=== PATIENT | male | born 1930 | race Caucasian/White ===

== ENCOUNTER 2017-01-31 13:55 | Emergency (ER) | payer MEDICARE, OTHER ==
[~2017-01-31] VITALS: Ht 167.6 cm; Wt 65.9 kg
[~2017-01-31 13:55] MED LIST: ASPI81TA2 PO; CEPH-512 PO; CHOL200035 PO; COU25 PO; FERROUS SULFATE PO; METOPROLOL SUCCINATE PO; SIMVASTATIN PO; SPIR25TA17 PO; VIAG25T PO
[2017-01-31 14:12] VITALS: BP 128/82; PULSE 70; RESP 16; O2SAT 98
--- NOTE | 2017-01-31 14:31 | ED.REPORT ---
HPI-General Illness Date of Service Jan 31, 2017 ED Provider: Saba Carrillo MD Pt is an 86 y/o male w/ a hx of CAD s/p CABG x3, HTN, CHF, A-fib, presenting to the ED c/o SOB onset 10 days ago. His shortness of breath began 6 months ago along with dyspnea on exertion. He seemed to improve thereafter. 10 days ago, he began to experience similar SOB, dyspnea on exertion, and fatigue. He was placed on 20 mg Lasix 1 month ago by his PCP Dr. Esteves. He took himself off the Lasix while he was in [place] for vacation so that he wouldn't experience increased urinary frequency. He returned from that trip 2 days ago. Pt denies orthopnea, change in pedal edema, fever, chills, cough, CP. Last echocardiogram 01/01/17 demonstrated an EF of 55-60%. Last cardiac cath unknown. Nursing Notes Stated Complaint: BREATHING Chief Complaint: Dysrhythmia/Cardiac Nursing Notes Reviewed: Yes Allergies: Coded Allergies: No Known Allergies (Unverified Allergy, Unknown, 02/25/15) Scheduled ([Simvastatin]) 1 TAB PO PM ([Metoprolol Succinate]) 1 TAB PO DAILY ([Ferrous Sulfate]) 2,000 MG PO DAILY Aspirin-Expunged Drug, Do Not Renew! (Aspirin-Expunged Drug, Do Not Renew!) 81 Mg Tablet 81 MG PO DAILY CHOLECALCIFEROL-Expunged Drug, Do Not Renew! (VITAMIN D3-Expunged Drug, Do Not Renew!) 2,000 Unit Capsule 2,000 UNIT PO DAILY Cephalexin (Keflex) 500 Mg Capsule 500 MG PO BID Sildenafil-Expunged Drug, Do Not Renew! (Viagra-Expunged Drug, Do Not Renew!) 25 Mg Tablet 25 MG PO PRN Spironolactone-Expunged Drug, Do Not Renew! (Spironolactone-Expunged Drug, Do Not Renew!) 25 Mg Tablet 25 MG PO BID Warfarin Inactive Drug Do Not Use (Coumadin Inactive Drug Do Not Use) 2.5 Mg Tablet 2.5 MG PO DAILY General Time Seen by MD: 14:27 Chief Complaint Breathing problem Past Medical History Past Medical History Notes: PCP: Dr. Mcclelland Echo 01/01/17 EF 55-60% Past Medical History CAD s/p CABG x3 CHF A-fib Hx melanoma Hypertension Past Surgical History CABG x3 Cardiac cath Melanoma removal Appendectomy Smoking History Unknown if Ever Smoker Social History Other Social History: Good social support Ambulatory Status Independent Review of Systems Full Review of Systems Constitutional: Reports: Fatigue, Denies: Chills, Fever Respiratory: Reports: Dyspnea on exertion, Shortness of breath, Denies: Non-productive cough Cardiovascular: Reports: Dyspnea on exertion, Denies: Chest pain, Edema, Orthopnea GI: Denies: Abdominal pain, Diarrhea, Nausea, Vomiting Complete sys rev & neg: except as marked. Physical Exam Vital Signs Vital Signs Date Time Temp Pulse Resp B/P Pulse Ox O2 Delivery O2 Flow Rate FiO2 01/31/17 14:12 36.6 70 16 128/82 98 Room Air Initial VS: Reviewed, Vital signs normal ENT: Mucous membranes moist, Conjunctiva normal, No scleral icterus Neck: Supple, Full range of motion Abdomen / GI: Soft, Non-tender Extremities: Vascular intact, Neuro intact, No tenderness Skin: Warm, Dry, No cyanosis Neurologic: Alert, Oriented, Nonfocal Psychiatric: Mood/affect normal, Behavior normal, Normal thought content General/Constitutional: Awake, Alert, No acute distress, Cooperative, Not toxic appearing Head / Eyes: Atraumatic, Normocephalic, PERRL Periorbital edema present Respiratory / Chest: Atraumatic, No respiratory distress, No retractions, No stridor, No chest tenderness, No chest wall deformity, No crepitus Crackles at bases Cardiovascular: Heart rate NL, Regular rhythm, Heart sounds NL, No gallop, No murmurs, No rubs, Cap refill not delayed, Peripheral circulation NL Lower Ext Edema: Positive: Bilateral 1+ Interpretation & Diagnostics Lab Results Interpretation Result Diagram: 01/31/17 1505 01/31/17 1505 Test 01/31/17 15:05 White Blood Count 4.3th/mm3 (3.8-10.1) Red Blood Count 3.67mil/mm3 (4.40-5.80) Hemoglobin 11.4g/dL (13.8-17.2) Hematocrit 36.7% (41.0-50.0) Mean Corpuscular Volume 100.0fL (81-100) Mean Corpuscular Hemoglobin 31.1pg (27.0-35.0) Mean Corpuscular Hemoglobin Concent 31.1% (32.0-37.0) Red Cell Distribution Width 15.4% (12.3-15.4) Platelet Count 124bil/L (150-400) Neutrophils (%) (Auto) 71.3% (40-74) Lymphocytes (%) (Auto) 17.4% (14-46) Monocytes (%) (Auto) 10.1% (4-12) Eosinophils (%) (Auto) 0.5% (0-5) Basophils (%) (Auto) 0.2% (0-3) Prothrombin Time 34.9sec (8.1-12.5) Prothromb Time International Ratio 3.19ratio Sodium Level 139mEq/L (134-144) Potassium Level 3.9mEq/L (3.5-5.2) Chloride Level 103mEq/L (97-108) Carbon Dioxide Level 21mmol/L (18-29) Blood Urea Nitrogen 16mg/dL (8-27) Creatinine 0.99mg/dL (0.76-1.27) Estimat Glomerular Filtration Rate 76mL/min (>59) Glucose Level 111mg/dL (60-99) Calcium Level 8.6mg/dL (8.5-10.1) Magnesium Level 1.6mg/dL (1.6-2.6) Total Bilirubin 0.7mg/dL (0.0-1.2) Aspartate Amino Transf (AST/SGOT) 28U/L (0-50) Alanine Aminotransferase (ALT/SGPT) 24U/L (0-44) Alkaline Phosphatase 85U/L (25-160) Troponin T 0.019ug/L (0.0-0.011) Pro-B-Type Natriuretic Peptide 3963pg/mL (0-486) Total Protein 6.1g/dL (6.4-8.4) Albumin 3.9g/dL (3.4-5.0) Hold Archer Top Tube Received (Received) ECG Interpretation ECG Interpretation: Ventricular-paced rhythm rate 70 Time: 16:29 Interpreted by: ED physician Normal ECG Interpretation: No acute ischemic changes X-Ray Chest Interpretation Chest Xray Interpretation: IMPRESSION: No acute process. Dictated by: Pauline Benavidez M.D. on 01/31/2017 at 14:42 Approved by: Pauline Benavidez M.D. on 01/31/2017 at 14:42 View: Portable, 1 view Interpretation / Wet Read by: Interpret - Radiologist Re-Eval/Medical Decision Med Decision/Clinical Course Increasing exertional dyspnea over the last [address] Esteves. Started on 20 mg of Lasix daily with improvement. Recent echocardiogram showed ejection fraction in the 50-55% range. Recent travel to [place] and has not taken any Lasix for about 10 days. Presents complaining of some periorbital puffiness and slight swelling in his ankles and exertional dyspnea. He is not having chest pain his oxygen saturations are in the 95-98% on room air range he is not hypotensive nor tachycardic. His workup is suggestive of an exacerbation of his congestive heart failure likely related to lack of medications for the last week. In the emergency department was given 40 mg of IV Lasix. 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 I also asked him to weigh himself daily if he notices that his weight is not decreasing or is actually increasing or he develops chest pain or increasing dyspnea he needs to return to the emergency department. Time of Eval: 17:35 Re-Evaluation/Progress Note: Pt rechecked. Informed pt of plan for treatment. Pt understands and agrees with plan for treatment. F/U and RTER warnings given. All questions addressed. Counseled Regarding: Diagnosis, Lab results, Need for follow-up, When/why to return to ED Discharge & Departure Primary Impression: CHF exacerbation Disposition: Home Discharge Condition All VS Reviewed: Yes Condition: Stable Patient Instructions: Congestive Heart Failure (ED) Additional Instructions: I believe you are experiencing a CHF exacerbation today which was brought on by being off your Lasix recently. Increase your Lasix to 40 mg once per day. You can expect to lose 5-10 lbs in water weight in the next few days. If you do not, you should see your PCP sooner. Return to the emergency department for worsening trouble breathing, high fever, vomiting, chest pain, or for other concerning symptoms. Follow-up with Dr Esteves in the next 1-2 weeks. He will help decide the correct dose of Lasix to continue and he may suggest some lab work to check your potassium levels Referrals: Min Patel MD (PCP) Mirlande Attestation Portions of this note were transcribed by Gordo Shaw. I, Dr. Carrillo personally performed the history, physical exam and medical decision-making; I reviewed and confirmed the accuracy of the information in the transcribed note. Signed by Mirlande Mike, 01/31/17 - [phone] copies to: Min Patel MD; Min Esteves MD, Shawna L MD Jan 31, 2017 14:31 GORDO SHAW Jan 31, 2017 15:22
--- NOTE | 2017-01-31 14:44 | DRSVH ---
PROCEDURE: X-RAY CHEST ONE VIEW, PORTABLE ([id number]) INDICATIONS: dyspnea TECHNIQUE: One view of the chest was acquired. COMPARISON: [facility], CR, CHEST 2VW, 05/23/2014, 10:20. FINDINGS: Surgical changes and devices:. Lungs and pleura: No pleural effusions or pneumothorax. Lungs are clear. Mediastinum: The thoracic aorta is tortuous. Mediastinal contours otherwise appear normal. Heart si ze is normal. Bones and chest wall: No suspicious bony lesions. Overlying soft tissues appear unremarkable. IMPRESSION: No acute process. Dictated by: Pauline Benavidez M.D. on 01/31/2017 at 14:42 Approved by: Pauline Benavidez M.D. on 01/31/2017 at 14:42
[2017-01-31 15:08] LABS: BASOPHILS % (AUTO) 0.2 % (0-3); EOSINOPHILS % (AUTO) 0.5 % (0-5); MONOCYTES % (AUTO) 10.1 % (4-12); Mean Corpuscular Hemoglobin 31.1 pg (27.0-35.0); NEUTROPHILS % (AUTO) 71.3 % (40-74); Platelet Count 124 bil/L (150-400)
[2017-01-31 15:30] LABS: INR 3.19 ratio
[2017-01-31 15:35] LABS: TROPONIN T 0.019 ug/L (0.0-0.011)
[2017-01-31 15:46] LABS: Magnesium 1.6 mg/dL (1.6-2.6)
[2017-01-31] MEDS ORDERED: Furosemide 10 mg/mL 4 mL Inj IVPUSH ONE (17:10)
[2017-01-31] MEDS ORDERED: FUR20 PO (18:22)
== END 2017-01-31 18:37 | disposition home or self-care (01) ==
LOC: SED 13:55
DX: I50.9 Heart failure, unspecified (principal); I25.10 Atherosclerotic heart disease of native coronary artery without angina pectoris; I48.91 Unspecified atrial fibrillation; I10 Essential (primary) hypertension; Z95.1 Presence of aortocoronary bypass graft; Z79.82 Long term (current) use of aspirin; Z79.01 Long term (current) use of anticoagulants
CPT/HCPCS: 36415; 71010; 80053; 83735; 83880; 84484; 85025; 85610; 93005; 96374; 99285; J1940

== ENCOUNTER 2017-05-14 00:31 | Day surgery (SDC) | payer MEDICARE, OTHER ==
[~2017-05-14] VITALS: Ht 165.1 cm; Wt 67.2 kg
[2017-05-14] VITALS (8 sets, daily range): BP systolic 100–136; BP diastolic 63–76; PULSE 60; RESP 17–24; O2SAT 96
[~2017-05-14 00:31] MED LIST changes: -ASPI81TA2 PO; +ATOR40TA69 PO; -CEPH-512 PO; -CHOL200035 PO; -COU25 PO; -FERROUS SULFATE PO; +FURO40TA4 PO; +MAGN250T37 PO; +METO25TA99 PO; -METOPROLOL SUCCINATE PO; -SIMVASTATIN PO; -SPIR25TA17 PO; -VIAG25T PO; +WARF2.5T82 PO
[2017-05-14] MEDS ORDERED: 0.9% Sodium Chloride 250 ML IV ONE (00:32)
[2017-05-14] MEDS ORDERED: 0.9% Sodium Chloride 1,000 ML IV PRN (10:11)
[2017-05-14] MEDS ORDERED: Vancomycin Inj 1,000 MG in IV Premix 1 EACH IV ONE (10:15)
[2017-05-14 11:05] LABS: BASOPHILS % (AUTO) 0.5 % (0-3); EOSINOPHILS % (AUTO) 1.7 % (0-5); MONOCYTES % (AUTO) 11.9 % (4-12); Mean Corpuscular Hemoglobin 31.7 pg (27.0-35.0); Platelet Count 136 bil/L (150-400)
--- NOTE | 2017-05-14 11:08 | NUR ---
Admitted as an outpatient for a pacemaker generator change for end of life of generator. Admits with a paced rhythm with a rate at 60. Pt understands procedure and is ready to go to case.
[2017-05-14 11:19] LABS: INR 1.88 ratio
[2017-05-14] MEDS ORDERED: Bupivacaine-MPF 0.5% 30 mL Inj ONE (12:42)
[2017-05-14] MEDS ORDERED: Heparin 10,000 Unit/1,000 mL NS Premix IV ONE (12:42)
[2017-05-14] MEDS ORDERED: Vancomycin 1,000 mg Inj ONE (12:43)
[2017-05-14] MEDS ORDERED: Water for Injection 50 ML IV ONE (12:43)
[2017-05-14] MEDS ORDERED: fentaNYL-PF 50 mCg/mL 2 mL Inj ONE (13:09)
[2017-05-14] MEDS ORDERED: Ondansetron 2 mg/mL 2 mL Inj IVPUSH PRN (13:55)
[2017-05-14] MEDS ORDERED: HYDROcodone-APAP 5-325 mg Tablet PO PRN (13:55)
[2017-05-14] MEDS ORDERED: 0.9% Sodium Chloride 1,000 ML IV SCH (13:55)
--- NOTE | 2017-05-14 14:25 | NUR ---
Noted reddened face and some redness of his right forearm lateral to IV. 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 Vancomycin stopped - note only 15cc left in bag to infuse. Dr Arias contacted regarding observations - pt states, "I am not bothered, very minor itching - declines ordered Benadryl.
--- NOTE | 2017-05-14 15:40 | NUR ---
Returned to [facility] following a generator change for his pacemaker. Site is soft/dry/intact. No pain - post pacer. Plan to D/C home following 2 hour recovery.
--- NOTE | 2017-05-14 16:10 | NUR ---
D/C from [facility] following a 2 hour recovery - pacer site is soft/non tender with no signs of hemtoma or bleeding. 100% pacer capture. Reddened face has improved since his recovery in [facility]. Right forearm has improved as well - IV dc'd without problems, or pain.
--- NOTE | 2017-05-15 05:02 | OP ---
[address] [address] OPERATIVE REPORT PATIENT: DELMER BARCENAS : 1930 MR#: [id number] ADMIT: 05/14/2017 JOB ID: [id number] DATE OF SURGERY: 05/14/2017 PREOPERATIVE DIAGNOSIS(ES): 1. Pacemaker battery depletion. 2. Complete heart block. 3. Chronic atrial fibrillation. POSTOPERATIVE DIAGNOSIS(ES): 1. Pacemaker battery depletion. 2. Complete heart block. 3. Chronic atrial fibrillation. PROCEDURE PERFORMED: Single chamber pacemaker generator replacement. SURGEON: Tyrel Arias MD, electrophysiology. PATHOLOGY TRANSCRIPTIONIST: Lisette Lopez. Gio IMPLANTED DEVICES: [place] [employer] Accolade SR, model L3-007, serial #[id number]. EXPLANTED DEVICE: Guidant 1290, serial #[id number]. CHRONIC DEVICES: 1. Right atrial lead capped useable. 2. RV lead, [employer] 1888TC, 58 cm, serial #[id number]. ANESTHESIA: Bolus dosing of Versed and fentanyl administered to appropriate level of sedation. INDICATION: The patient is a pleasant, 86-year-old man with chronic atrial fibrillation and complete heart block with a junctional escape in the low 40s, whose pacemaker has reached ANALIA. After discussion of risks and benefits of pacemaker generator replacement, he opted to proceed. PROCEDURAL DESCRIPTION: Following informed signed consent, the patient was taken to the EP laboratory in a fasting nonsedated state, where he was prepped in usual sterile fashion. The left infraclavicular surgical scar was infiltrated with 20 cc of a 50/50 mixture of bupivacaine and lidocaine. Once adequate anesthesia had been achieved, a 3 cm incision was performed overlying previous surgical scar. Dissection was carried down to the capsule and the leads and generator were freed loose of adhesions. The patient's pacing rate was decreased slowly until his escape rhythm in the 40s came through. The leads were disconnected from the generator. The pocket was copiously irrigated with antibiotic solution. The leads were inspected and shown to be intact. The right ventricular lead was connected to a new pulse generator. The right atrial lead was capped and secured to the floor of the capsule. The entire system was then replaced into the capsule and the incision was closed with running layers of suture. The wound was dressed with skin adhesive dressing. At the end of procedure the needle, sponge, instrument counts were all correct. COMPLICATIONS: None. ESTIMATED BLOOD LOSS: MEASURED DATA: 406 ohms, 1.5 V at 0.4 msec. No R-waves on the 30 beats per minute. FINAL PROGRAM PERIMETERS: VVIR 60 beats per minute. IMPRESSION: Successful pacemaker generator placement. PLAN: 1. Bed rest and recovery in the [facility]. 2. Doxycycline 100 mg p.o. daily x7 days. 3. Wound check in one week. 4. Follow up with Tim Valera in six weeks. ITyrel MD, electrophysiology attending, was present for and supervised/performed all aspects of this procedure.
== END 2017-05-14 23:59 | disposition home or self-care (01) ==
LOC: SOUO 00:31
PROVIDERS: ATTEND Internal Medicine Cardiovascular Disease
DX: Z45.010 Encounter for checking and testing of cardiac pacemaker pulse generator [battery] (principal); I44.2 Atrioventricular block, complete; I48.2 Chronic atrial fibrillation; I25.10 Atherosclerotic heart disease of native coronary artery without angina pectoris; E78.5 Hyperlipidemia, unspecified; I10 Essential (primary) hypertension; I08.1 Rheumatic disorders of both mitral and tricuspid valves; I27.2 Other secondary pulmonary hypertension; Z95.1 Presence of aortocoronary bypass graft; Z79.01 Long term (current) use of anticoagulants
CPT/HCPCS: 33227; 36415; 80048; 85025; 85610; 93005; 99152; 99153; C1769; C1786; J1644; J2250; J3010; J3370; J7050